=== PATIENT | male | born 1965 | race African-American/Black ===

== ENCOUNTER 2022-03-27 06:36 | Emergency (ER) | payer SELFPAY ==
[2022-03-27 06:37] VITALS: BP 188/94; PULSE 65; RESP 18; TEMP 36.5; O2SAT 99; BMI 28.2
--- NOTE | 2022-03-27 07:16 | ED.VIS.DENTA ---
HPI History of Present Illness Chief Complaint: Headache Narrative Narrative: 56-year-old male presenting with right-sided jaw pain. He states this has been ongoing and has been taking ibuprofen and Tylenol alternating doses for this. Patient states that it hurts at the angle of the right mandible and radiates into the jaw. Patient does admit to some pain when he is swallowing in the right side of his neck. He is not had a fever, chills, cough. He does not have any visual complaints. He does state at times it radiates to his right ear. Patient does state that he grinds his teeth very badly at night as well. He does admit to his jaw cracking and popping at times. He has no formal diagnosis of TMJ. PFSH PFSH Medical History no medical history Home Medications amoxicillin-pot clavulanate 1 tab PO BID #20 tab 03/27/22 [Rx Last Taken Unknown] multivit [id number] 1-dha 1 tab PO/SL DAILY 03/27/22 [History Last Taken Unknown] tramadol [Ultram] 50 mg PO Q8H PRN 3 Days #12 tab 03/27/22 [Rx Last Taken Unknown] Allergy/AdvReac Type Severity Reaction Status Date / Time ethinyl estradiol Allergy Other Verified 03/27/22 06:41 [From [facility] (91)] levonorgestrel Allergy Other Verified 03/27/22 06:41 [From [facility] (91)] Social History Smoking Status: Never smoker ROS ROS ED Constitutional Constitutional ED: Denies chills, fever(s) or sweats Eyes Eyes: Denies blurry vision or change in vision ENT ENT ED: Reports dental pain, ear pain right, headache(s), sore throat and other Details: Jaw pain at the angle of right mandible ; Denies disequillibrium, hearing loss, hoarseness, lip swelling, loss taste/smell, mouth lesions or nasal congestion Cardiovascular Cardiovascular: Denies chest pain, palpitations or racing heartbeat Respiratory/Chest Respiratory/Chest: Denies cough, dyspnea or sputum Gastrointestinal Gastrointestinal: Denies abdominal pain, constipation, diarrhea, nausea or vomiting Genitourinary Genitourinary ED: Denies dysuria, hematuria or urinary frequency Musculoskeletal Musculoskeletal: Denies arthralgias, myalgias or neck pain Integumentary Denies abscess, Abrasions or rash Neurologic Neurologic: Reports headache(s); Denies paresthesias or weakness Psychiatric Psychiatric: Denies anxiety, depression, suicidal ideation or suicidal thoughts Endocrine Endocrinology: Denies polydipsia or polyuria EXAM Physical Exam Const Vital Signs: 03/27/22 06:37 03/27/22 08:36 Temperature 97.7 F L Temperature Source Temporal Pulse Rate 65 76 Respiratory Rate 18 18 Blood Pressure 188/94 H 167/106 H Blood Pressure Mean 125 126 Pulse Ox 99 96 Oxygen Delivery Method Room Air Room Air Positive well nourished and no apparent distress General Appearance ED: active; Negative for pallor HEENT Reports normocephalic, head/scalp atraumatic and moist mucous membranes normocephalic and atraumatic Face and Sinus: sinuses nontender and face symmetric; Negative for facial edema or fluctuance Nose: external nose normal, nares normal and nasal mucous membranes and turbinates normal External Ear: external ears normal, mastoids normal and no preauricular adenopathy Tympanic Membrane ED: Yes TM's normal bilaterally Mouth ED: Yes oral and palatal mucosa normal, Yes lips normal, Yes tongue normal, Yes salivary gland normal, Yes moist mucous membranes normal, No drooling and No fetor hepaticus Mouth: oral and palatal mucosa normal, lips normal, tongue normal, salivary gland normal, No drooling and No fetor hepaticus Teeth and Gingiva: caries Throat: posterior oropharynx normal, tonsils normal and other; Negative for hoarseness Eyes PERRL and EOMs intact bilaterally Neck General: lymphadenopathy anterior cervical; Negative for tracheal deviation Chest Wall inspection of chest normal and palpation of chest normal Resp normal respiratory effort and clear to auscultation bilaterally Auscultation: Negative for rales, rhonchi or wheezes Cardio regular rate and regular rhythm Narrative: Deferred Extremity General Extremety ED: Negative for edema or tenderness General Extremity: Negative for edema Neuro oriented x3 and CN's II-XII intact bilaterally Sensorium / Orientation: alert Motor Exam: strength 5/5 throughout Psych mental status grossly normal Attitude: No agitated Skin no rashes or lesions noted and no wounds General Skin Exam: Negative for jaundice or pallor MDM MDM MDM Narrative Medical decision making narrative: Patient presenting with right jaw pain. He is unsure if he has a dental source but he does state his tooth hurts on the right mandible. He also has pain with putting closing at the angle of the right mandible. There is no trauma. Right episcop[employer] is nontender to palpation. Right ear and TM look normal. The patient does have right-sided anterior lymphadenopathy. His oropharynx does not have erythema or exudates. Is patent without stridor. Tongue, buccal mucosa, sublingual region all within normal limits. No submandibular fullness. Patient requested something for pain more than ibuprofen and since has not been working. He was given Ultram in the ED. His rapid strep done today was negative. Unclear whether there is a dental source here because the patient does have some dental pain. I will start him on Augmentin, and he will be given a prescription for Ultram to help with pain. He can use the usual adjunct such as Tylenol and ibuprofen as well. Patient was given follow-up with ENT. Impression: 1. Dental pain 2. TMJ pain 3. Cervical lymphadenitis Lab Data Attestation: I reviewed the patient's lab results. Discharge Plan Triage Chief Complaint: Headache ED Provider: Ezra Casas Dx/Rx/DC Orders Instructions: ED ADENITIS Cervical Abx Tx, ED Dental Pain, ED Headache Unspecified, ED TMJ Syndrome Prescriptions: New amoxicillin-pot clavulanate 875-125 mg tablet 1 tab PO BID Qty: 20 RF: 0 tramadol [Ultram] 50 mg tablet 50 mg PO Q8H PRN (Reason: pain) 3 Days Qty: 12 RF: 0 No Action multivit [id number] 1-dha 1 tab PO/SL DAILY RF: 0 Primary Care Provider: Care Physician,No Primary Referrals: Jamey Anne MD [STAFF PHYSICIAN] - 3-5 Days Care Physician,No Primary [Primary Care Provider] - Disposition Disposition: Home, Self Care
[2022-03-27] MEDS: traMADol 50 MG Tablet PO (07:28)
[2022-03-27 08:36] VITALS: BP 167/106; PULSE 76; RESP 18; O2SAT 96
[2022-03-27] MEDS: Amox/Clavulanate 875 MG Tablet PO (10:09)
== END 2022-03-27 10:11 | disposition home or self-care (01) ==
PROVIDERS: Emergency Provider Student in an Organized Health Care Education/Training Program; Visit Provider Student in an Organized Health Care Education/Training Program
DX: K08.89 Other specified disorders of teeth and supporting structures (principal); L04.0 Acute lymphadenitis of face, head and neck; M26.641 Arthritis of right temporomandibular joint
CPT/HCPCS: 87880; 99283